=== PATIENT | female | born 1995 | race Caucasian/White ===

== ENCOUNTER 2020-11-26 23:38 | Emergency (ER) | payer SELFPAY ==
[~2020-11-26] VITALS: Ht 167.6 cm; Wt 63.5 kg
--- NOTE | 2020-11-27 | NUR ---
Patient walked into ER c/o fever and N/V with diarrhea that started this AM. Patient states she had an appendectomy 1 week ago. 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 A/O x4, no SOB or labored breathing. Denies CP/pressure.
--- NOTE | 2020-11-27 00:15 | NUR ---
Dr. Cox at bedside, MSE in progress.
[2020-11-27] MEDS ORDERED: LORA2TAB95 PO (00:31)
[2020-11-27] MEDS ORDERED: ONDA4TAB5 PO (00:31)
[2020-11-27] MEDS ORDERED: ALPR1TAB7 PO (00:31)
[2020-11-27] MEDS ORDERED: QUET200T PO (00:31)
[2020-11-27] MEDS ORDERED: OXYC-128 PO (00:31)
[2020-11-27] MEDS ORDERED: IV NORMAL SALINE 1000 ML BAG IV ONE (00:45)
[2020-11-27] MEDS ORDERED: ONDANSETRON 4 MG/2 ML VIAL IV ONE ×2 (00:45→02:45)
[2020-11-27] MEDS ORDERED: HYDROMORPHONE 1 MG/1 ML DISP.SYRIN IV ONE ×2 (00:45→02:00)
[2020-11-27] MEDS ORDERED: ONDANSETRON 4 MG/2 ML VIAL ONE ×2 (01:24→02:40)
[2020-11-27] MEDS ORDERED: HYDROMORPHONE 1 MG/1 ML DISP.SYRIN ONE ×2 (01:29→02:10)
[2020-11-27 01:49] LABS: CARBON DIOXIDE 28 mmol/L (21-32); CHLORIDE 103 mmol/L (98-107); CREATININE 0.6 mg/dL (0.6-1.3); GLUCOSE 95 mg/dL (74-106); POTASSIUM 3.6 mmol/L (3.5-5.1); UREA NITROGEN, BLOOD 2 mg/dL (7-18)
[2020-11-27 01:50] LABS: HEMATOCRIT 30.4 % (31.2-41.9); MEAN CORPUSCULAR HEMOGLOBIN 27.2 uug (24.7-32.8); PLATELET COUNT (AUTO) 185 K/uL (179-408)
[2020-11-27 01:55] LABS: ALANINE AMINOTRANSFERASE 118 U/L (14-59); ALKALINE PHOSPHATASE 271 U/L (50-136); ASPARTATE AMINOTRANSFERASE 84 U/L (15-37); BILIRUBIN,DIRECT 0.2 mg/dL (0.0-0.2); BILIRUBIN,TOTAL 0.8 mg/dL (0.2-1.0); LIPASE 30 U/L (73-393); TOTAL PROTEIN, SERUM 6.9 g/dL (6.4-8.2)
[2020-11-27 02:23] LABS: *BILIRUBIN,URIN NEGATIVE (NEGATIVE); *BLOOD, URINE 2+ (NEGATIVE); *CLARITY,URINE CLEAR (CLEAR); *COLOR,URINE YELLOW (YELLOW); *KETONES,URINE NEGATIVE (NEGATIVE); *UROBILINOGEN,URINE 0.2 E.U./dl (NORMAL); LEUKOCYTE ESTERASE ,URINE TRACE (NEGATIVE); NITRITE, URINE NEGATIVE (NEGATIVE); PH,URINE 6.5 (5.0-8.0); UGLUCOSE NEGATIVE (NEGATIVE)
--- NOTE | 2020-11-27 02:38 | NUR ---
PT TAKEN DOWN FOR CT.
[2020-11-27 02:48] LABS: BACTERIA,URINE NONE SEEN /HPF (NONE SEEN); RBC,URINE 0-3 /HPF (0-3); SQUAMOUS EPITHELIAL CELL,UR MODERATE /HPF (NONE SEEN); WBC,URINE 0-3 /HPF (0-3)
--- NOTE | 2020-11-27 02:48 | NUR ---
PT RETURNED FROM CT, STABLE CONDITION.
--- NOTE | 2020-11-27 04:19 | NUR ---
Patient is resting comfortably in bed with eyes closed.
[2020-11-27] MEDS ORDERED: HYDR-4209 PO (04:22)
[2020-11-27] MEDS ORDERED: ONDA8TAB13 PO (04:22)
--- NOTE | 2020-11-27 04:43 | NUR ---
Patient discharged to home in stable condition. A/O x4, no SOB or labored breathing, afebrile. Denies any yoo/discomfort at this time. Written and verbal after care instructions given. Patient verbalizes understanding of instructions. Stressed follow up or return to ER for worsening s/s. Steady gait. Picked up by family.
[2020-11-27 04:47] VITALS: BP 102/56
== END 2020-11-27 04:45 | disposition home or self-care (01) ==
LOC: ER 23:55
DX: G89.18 Other acute postprocedural pain (principal); R10.84 Generalized abdominal pain; E86.0 Dehydration; R11.2 Nausea with vomiting, unspecified; R50.9 Fever, unspecified; Z20.822 Contact with and (suspected) exposure to COVID-19; Z90.49 Acquired absence of other specified parts of digestive tract
CPT/HCPCS: 36415; 74176; 80048; 80076; 81001; 83690; 84702; 85025; 87426; 96361; 96374; 96375; 96376; 99284; J1170 ×2; J2405 ×2; A4663; J7030

== ENCOUNTER 2020-12-01 20:41 | Emergency (ER) | payer SELFPAY ==
[~2020-12-01] VITALS: Ht 167.6 cm; Wt 65.8 kg
[~2020-12-01 20:41] MED LIST: ALPR1TAB7 PO; HYDR-4209 PO; LORA2TAB95 PO; ONDA4TAB5 PO; ONDA8TAB13 PO; OXYC-128 PO; QUET200T PO
[2020-12-01] MEDS ORDERED: IV NORMAL SALINE 1000 ML BAG IV ONE (21:45)
[2020-12-01] MEDS ORDERED: ONDANSETRON 4 MG/2 ML VIAL IV ONE ×2 (21:45→23:00)
[2020-12-01] MEDS ORDERED: ONDANSETRON 4 MG/2 ML VIAL ONE ×2 (21:52→23:07)
[2020-12-01] MEDS ORDERED: HYDROMORPHONE 1 MG/1 ML DISP.SYRIN IV ONE (22:00)
[2020-12-01] MEDS ORDERED: SWABABLE VALVE TRANSFER SET EA MC ONE (22:12)
[2020-12-01] MEDS ORDERED: IOHEXOL 300MG/ML 100 ML INFUS..BTL ONE (22:12)
[2020-12-01] MEDS ORDERED: IV NORMAL SALINE 250 ML IV ONE (22:12)
--- NOTE | 2020-12-01 22:25 | NUR ---
Patient taken out for CT scan by sales support technician.
[2020-12-01 22:27] LABS: MEAN CORPUSCULAR HEMOGLOBIN 26.3 uug (24.7-32.8); MEAN CORPUSCULAR VOLUME 79.8 fL (75.5-95.3); PLATELET COUNT (AUTO) 297 K/uL (179-408)
[2020-12-01] MEDS ORDERED: HYDROMORPHONE 1 MG/1 ML DISP.SYRIN ONE (22:29)
[2020-12-01 22:38] LABS: BILIRUBIN,DIRECT 0.1 mg/dL (0.0-0.2); BILIRUBIN,TOTAL 0.4 mg/dL (0.2-1.0); CREATININE 0.7 mg/dL (0.6-1.3); POTASSIUM 3.6 mmol/L (3.5-5.1); TOTAL PROTEIN, SERUM 7.6 g/dL (6.4-8.2)
--- NOTE | 2020-12-02 00:30 | NUR ---
Patient is resting comfortably in bed with eyes closed, no acute distress noted.
--- NOTE | 2020-12-02 01:00 | NUR ---
Patient c/o of angiocath 22g L wrist IV site. Assessed the site for infiltration. No infiltration present, flushes well. Readjusted position of the angiocath, patient stated relief of discomfort.
--- NOTE | 2020-12-02 01:23 | NUR ---
highway maintenance technician in room with patient.
--- NOTE | 2020-12-02 01:25 | NUR ---
Patient requesting more pain medication before U/S procedure, MD Hernandez made aware.
[2020-12-02] MEDS ORDERED: FENTANYL CITRATE 100 MCG/2 ML AMPUL IV ONE (01:30)
[2020-12-02] MEDS ORDERED: FENTANYL CITRATE 100 MCG/2 ML AMPUL ONE (01:37)
--- NOTE | 2020-12-02 03:52 | NUR ---
IV removed. Catheter intact and site benign. Pressure and 4x4 gauze applied to site. No bleeding noted.
[2020-12-02 04:30] VITALS: BP 104/60
--- NOTE | 2020-12-02 04:30 | NUR ---
Patient discharged to home in stable condition. Written and verbal after care instructions given. Patient verbalizes understanding of instructions. Stressed follow up or return to ER for worsening s/s. Patient ambulates with steady gait with her walker, V/S stable, IV line removed, and left with all personal belongings.
== END 2020-12-02 04:30 | disposition home or self-care (01) ==
LOC: ER 20:42
DX: G89.18 Other acute postprocedural pain (principal); R10.31 Right lower quadrant pain; N20.0 Calculus of kidney; R11.2 Nausea with vomiting, unspecified; R19.7 Diarrhea, unspecified
CPT/HCPCS: 36415 ×2; 74176; 76700; 76856; 80048; 80076; 83605 ×2; 83690; 85025; 87040; 96361; 96374; 96375; 96376; 99284; J1170; J2405 ×2; J3010; A4663; J7030; J7050; Q9967

== ENCOUNTER 2020-12-08 01:55 | Inpatient (IN) | payer SELFPAY ==
[~2020-12-08] VITALS: Ht 167.6 cm; Wt 64.5 kg
--- NOTE | 2020-12-08 02:24 | NUR ---
MD Malloy in room to do MSE.
[2020-12-08] MEDS ORDERED: KETOROLAC TROMETHAMINE 15 MG INJ IVP ONE (02:30)
[2020-12-08] MEDS ORDERED: IV NORMAL SALINE 1000 ML BAG IV ONE ×3 (02:30→04:00)
[2020-12-08 02:41] LABS: *BILIRUBIN,URIN NEGATIVE (NEGATIVE); *BLOOD, URINE NEGATIVE (NEGATIVE); *CLARITY,URINE CLEAR (CLEAR); *COLOR,URINE YELLOW (YELLOW); *KETONES,URINE NEGATIVE (NEGATIVE); *UROBILINOGEN,URINE 0.2 E.U./dl (NORMAL); LEUKOCYTE ESTERASE ,URINE NEGATIVE (NEGATIVE); NITRITE, URINE NEGATIVE (NEGATIVE); PH,URINE 6.5 (5.0-8.0); UGLUCOSE NEGATIVE (NEGATIVE)
--- NOTE | 2020-12-08 02:49 | NUR ---
Patient refused toradol saying she think she got an allergic reaction to it before at one point with "rash at the infusion site."
--- NOTE | 2020-12-08 02:50 | NUR ---
Patient keeps disconnecting monitoring equipment. Patient educated to keep monitoring equipment on.
[2020-12-08 02:57] LABS: *AMPHETAMINE, URINE NEGATIVE (NEGATIVE); *CANNABINOID, URINE NEGATIVE (NEGATIVE); *COCCAINE, URINE NEGATIVE (NEGATIVE); *OPIATE, URINE NEGATIVE (NEGATIVE); *PHENCYCLIDINE SCREEN,URINE NEGATIVE (NEGATIVE)
[2020-12-08] MEDS ORDERED: ACETAMINOPHEN ES 500 MG TABLET PO ONE ×2 (03:15→03:30)
[2020-12-08] MEDS ORDERED: ACETAMINOPHEN ES 500 MG TABLET ONE (03:27)
[2020-12-08 03:35] LABS: HEMATOCRIT 36.6 % (31.2-41.9); MEAN CORPUSCULAR HEMOGLOBIN 25.9 uug (24.7-32.8); MEAN CORPUSCULAR VOLUME 78.6 fL (75.5-95.3); PLATELET COUNT (AUTO) 307 K/uL (179-408)
[2020-12-08 03:38] LABS: CARBON DIOXIDE 20 mmol/L (21-32); CHLORIDE 105 mmol/L (98-107); CREATININE 0.7 mg/dL (0.6-1.3); GLUCOSE 90 mg/dL (74-106); POTASSIUM 3.1 mmol/L (3.5-5.1); UREA NITROGEN, BLOOD 4 mg/dL (7-18)
[2020-12-08 03:43] LABS: ALANINE AMINOTRANSFERASE 16 U/L (14-59); ALKALINE PHOSPHATASE 168 U/L (50-136); ASPARTATE AMINOTRANSFERASE 16 U/L (15-37); BILIRUBIN,DIRECT 0.2 mg/dL (0.0-0.2); LIPASE 43 U/L (73-393); TOTAL PROTEIN, SERUM 8.4 g/dL (6.4-8.2)
[2020-12-08 03:57] LABS: MAGNESIUM 2.5 mg/dL (1.8-2.4); PHOSPHOROUS 3.5 mg/dL (2.5-4.9)
[2020-12-08] MEDS ORDERED: POTASSIUM CHLORIDE 20 MEQ TAB.PRT.SR PO ONE (04:00)
[2020-12-08 04:08] LABS: THYROID STIMULATING HORMONE 1.404 mIU/mL (0.358-3.740)
[2020-12-08] MEDS ORDERED: POTASSIUM CHLORIDE 20 MEQ TAB.PRT.SR ONE (04:16)
[2020-12-08 04:24] LABS: ABG BASE EXCESS -6.4 mmol/L; ABG HCO3 17.2 mmol/L; ABG PCO2 28.4 mmHg (35.0-45.0); ABG PH 7.401 (7.350-7.450); ABG PO2 121.1 mmHg (75.0-100.0); ABG SITE RIGHT RADIAL; ABG TOTAL HEMOGLOBIN 10.8 G/dL (12.0-16.0); COHb 0.3 % (0.5-1.5); MetHb 0.1 % (0.0-1.5)
--- NOTE | 2020-12-08 04:38 | NUR ---
Patient is resting comfortably in bed with eyes closed, no acute distress noted.
--- NOTE | 2020-12-08 05:34 | NUR ---
Patient is resting comfortably in bed with eyes closed, no acute distress noted.
[2020-12-08] MEDS ORDERED: MORPHINE SULFATE 4 MG/1 ML DISP.SYRIN IV ONE (07:00)
[2020-12-08] MEDS ORDERED: ONDANSETRON 4 MG/2 ML VIAL IV ONE (07:00)
--- NOTE | 2020-12-08 07:30 | NUR ---
Received patient in shift report, no signs of acute distress, Informed by [facility] charge nurse that no bed available at this time
--- NOTE | 2020-12-08 09:42 | NUR ---
ELEANOR Varela paged for orders regarding pain medication request
[2020-12-08] MEDS ORDERED: ACETAMINOPHEN 325 MG TABLET PO PRN (10:30)
[2020-12-08] MEDS ORDERED: MAGNESIUM HYDROXIDE 30 ML LIQUID UDC PO PRN (10:30)
[2020-12-08] MEDS: MORPHINE SULFATE 4 MG/1 ML DISP.SYRIN IV PRN ×2 (10:42→15:11)
[2020-12-08] MEDS: ONDANSETRON 4 MG/2 ML VIAL IV PRN (10:42)
[2020-12-08] MEDS ORDERED: MORPHINE SULFATE 4 MG/1 ML DISP.SYRIN ONE ×3 (10:44→19:00)
[2020-12-08] MEDS: CEFTRIAXONE 1 G in IV DEXTROSE 5% 50 ML IV SCH (12:45)
[2020-12-08] MEDS ORDERED: IV NORMAL SALINE 250 ML IV ONE (12:49)
[2020-12-08] MEDS ORDERED: SWABABLE VALVE TRANSFER SET EA MC ONE (12:49)
[2020-12-08] MEDS ORDERED: IOHEXOL 300MG/ML 100 ML INFUS..BTL ONE (12:49)
--- NOTE | 2020-12-08 13:00 | NUR ---
patient noted using restroom at this time, no signs of acute distress noted, vitals WNLs
[2020-12-08] MEDS ORDERED: HYDROMORPHONE 1 MG/1 ML DISP.SYRIN IV ONE (13:30)
[2020-12-08] MEDS ORDERED: CEFTRIAXONE /D5W 50ML IVPB **ER PYXIS IV ONE (13:57)
[2020-12-08] MEDS ORDERED: HYDROMORPHONE 1 MG/1 ML DISP.SYRIN ONE ×2 (13:57→21:01)
[2020-12-08] MEDS ORDERED: METRONIDAZOLE 500 MG/NS 100ML 100 ML IV ONE ×2 (13:57→23:14)
[2020-12-08] MEDS ORDERED: LORAZEPAM 0.5 MG TABLET PO PRN (14:15)
[2020-12-08] MEDS: METRONIDAZOLE 500 MG/NS 100ML 500 MG in PREMIXED 1 EACH IV SCH ×2 (14:16→23:15)
--- NOTE | 2020-12-08 15:24 | NUR ---
No signs of acute distress noted, awaiting medsurg bed availability, pain management needs being adressed
--- NOTE | 2020-12-08 16:05 | NUR ---
manager transportation planning Cammie called regarding transfer to [facility], awaiting update
[2020-12-08] MEDS ORDERED: ONDANSETRON 4 MG/2 ML VIAL ONE (19:00)
--- NOTE | 2020-12-08 19:00 | NUR ---
Morphine 4 mg IV given for abdominal pain at 1900
[2020-12-08] MEDS ORDERED: IV LACTATED RINGERS SOLUTION 1,000 ML IV PRN (19:45)
[2020-12-08] MEDS: QUETIAPINE FUMARATE 200 MG TABLET PO SCH (21:01)
[2020-12-08] MEDS: HYDROMORPHONE 1 MG/1 ML DISP.SYRIN IV PRN (21:02)
[2020-12-08] MEDS ORDERED: QUETIAPINE FUMARATE 200 MG TABLET ONE (21:03)
--- NOTE | 2020-12-08 21:40 | NUR ---
attempted to call case resolution specialist osbaldo for updates. no response at this time
--- NOTE | 2020-12-08 22:04 | NUR ---
Spoke with Aaron Centeno supervisor and was notified that there is no upper caser at this time
--- NOTE | 2020-12-08 22:57 | NUR ---
Avery WEBSTER notified that no updates for transfer at this time. given permission to admit at [facility] at Med / Surg Unit
--- NOTE | 2020-12-08 23:49 | NUR ---
fLAGYL 500MG DONE INFUSING AT 2345. NO ASE NOTED
[2020-12-09] MEDS: IV NS 1000 ML 1,000 ML IV PRN (00:20)
[2020-12-09 00:58] VITALS: BP 104/47
[2020-12-09] MEDS: HYDROMORPHONE 1 MG/1 ML DISP.SYRIN IV PRN ×6 (01:17→22:19)
[2020-12-09] MEDS ORDERED: METRONIDAZOLE 500 MG/NS 100ML 100 ML IV ONE (02:40)
--- NOTE | 2020-12-09 03:29 | NUR ---
Pt arrived in the unit at 2354 via gurney from ER. AAO x4. No acute distress noted. C/o moderate pain on left lower abdomen where she had appendectomy via laparoscopy 1 1/2 weeks ago. IV Dilaudid PRN given as ordered. Surgical sites are clean and dry, no s/s of infection, no drainage noted. Picture taken and placed in chart. Pertinent assessment done. IV in right AC running IVF @ 100cc/ hr. Oriented pt to room. Pt is ambulatory. Safety measures maintained. Call light and personal items within reach. Will continue to monitor. Addendum: 12/09/20 at 0538 by Erick Milan RN right lower abdomen pain , not left lower abdomen
[2020-12-09] MEDS: METRONIDAZOLE 500 MG/NS 100ML 500 MG in PREMIXED 1 EACH IV SCH ×2 (05:29→13:54)
[2020-12-09] MEDS: PANTOPRAZOLE SODIUM 40 MG TABLET.DR PO SCH (06:52)
[2020-12-09 11:48] VITALS: BP 110/67
[2020-12-09] MEDS: CEFTRIAXONE 1 G in IV DEXTROSE 5% 50 ML IV SCH (13:30)
[2020-12-09] MEDS: ONDANSETRON 4 MG/2 ML VIAL IV PRN ×3 (13:47→22:16)
[2020-12-09] MEDS ORDERED: METOCLOPRAMIDE HCL 10 MG/2 ML VIAL IV PRN ×2 (14:00)
[2020-12-09 14:50] LABS: HEMATOCRIT 34.1 % (31.2-41.9); MEAN CORPUSCULAR HEMOGLOBIN 26.5 uug (24.7-32.8); MEAN CORPUSCULAR VOLUME 79.1 fL (75.5-95.3); PLATELET COUNT (AUTO) 295 K/uL (179-408)
[2020-12-09 14:59] LABS: CREATININE 0.6 mg/dL (0.6-1.3); MAGNESIUM 2.4 mg/dL (1.8-2.4); POTASSIUM 3.6 mmol/L (3.5-5.1)
[2020-12-09 15:24] VITALS: BP 109/72
[2020-12-09 20:30] VITALS: BP 127/80
[2020-12-09] MEDS: METRONIDAZOLE 500 MG TABLET PO SCH (21:08)
[2020-12-09] MEDS: QUETIAPINE FUMARATE 200 MG TABLET PO SCH (21:08)
[2020-12-10] MEDS: HYDROMORPHONE 1 MG/1 ML DISP.SYRIN IV PRN ×3 (02:30→11:28)
[2020-12-10 04:25] VITALS: BP 113/59
[2020-12-10] MEDS: METRONIDAZOLE 500 MG TABLET PO SCH (07:06)
[2020-12-10] MEDS: PANTOPRAZOLE SODIUM 40 MG TABLET.DR PO SCH (07:06)
--- NOTE | 2020-12-10 07:14 | NUR ---
Shift note: RECEIVED PT START OF SHIFT INTRODUCED MYSELF TO PT INFORMED PT THAT WILL BE HER NURSE THE SHIFT PT HAS IVF OF NS INFUSING AT 100ML/HR PT IS ALERT AND ORIENTED X4 PT WAS GIVEN MEDICATION 3 TIMES THROUGHOUT SHIFT FOR ABD PAIN. PT WAS GIVEN REG MEDICATION TOLERATED WELL AND NO SIGNS OF ADVERSE REACTION NOTED. WILL CONTINUE TO MONITOR FOR SAFETY ORDERED. WILL ENDORSE AM WHAT HAPPEN THROUGHOUT THE SHIFT.
--- NOTE | 2020-12-10 07:40 | NUR ---
Received in bed awake and alert oriented. Denies pain, nausea or vomiting at this time. No respiratory distress noted. IV hydration ongoing and tolerated. She is comfortable. Call light within easy reach. Will continue to monitor.
[2020-12-10] MEDS: ONDANSETRON 4 MG/2 ML VIAL IV PRN (09:01)
--- NOTE | 2020-12-10 10:30 | NUR ---
Patient stated she vomited but did not witness it nor vomitus found. She stated she flushed the toilet in hurry. Patient also said she had diarrhea but unable to tell if stool is loose or not. Still c/o abdominal pain.
[2020-12-10] MEDS: IV NS 1000 ML 1,000 ML IV PRN (10:35)
[2020-12-10 11:15] VITALS: BP 124/65
[2020-12-10] MEDS ORDERED: LORAZEPAM 0.5 MG TABLET PO PRN (11:45)
[2020-12-10] MEDS ORDERED: LORAZEPAM 1 MG TABLET PO PRN (11:45)
[2020-12-10] MEDS ORDERED: OXYCODONE/APAP 5-325 MG TABLET PO PRN (11:45)
--- NOTE | 2020-12-10 12:00 | NUR ---
Received call from pharmacy re patient's percocet and allergy to morphine. Per patient she's taken percocet before and did not experience any reactions. She would like to continue medication. Pharmacy aware.
[2020-12-10] MEDS: LORAZEPAM 2 MG/1 ML VIAL IV PRN ×2 (12:03→18:05)
[2020-12-10] MEDS: CEFTRIAXONE 1 G in IV DEXTROSE 5% 50 ML IV SCH (12:03)
[2020-12-10 15:17] VITALS: BP_SYST 110; BP_SYST 111; BP_DIAS 68; BP_DIAS 76
--- NOTE | 2020-12-10 19:01 | NUR ---
Patient alert and oriented x4. Denies sob or pain at this time. IV intact. No acute distress. Needs attended. Kept comfortable. Call light within reach.
--- NOTE | 2020-12-10 20:47 | NUR ---
RECEIVED REPORT FROM AM NURSE STATES'PT NOT RECEIVING DILAUDID 0.25MG FOR PAIN PT IS RECEIVING PERCOCET FOR PAIN' PT MADE AWARE CAN'T RECEIVED DILAUDID DR José/Rickey NOW HAVE PO INSTEAD OF IV AFTERWARDS PT DECIDED TO SIGN OUT AMA STATES' THE PILLS AREN'T WORKING I AM STILL IN A LOT OF PAIN AND I CAN GO BACK TO THE OTHER HOSPITAL. PT WAS TAKEN DOWN VIA WHEELCHAIR TAKEN DOWN TO AWAITING VEHICLE NO SIGNS OF DISTRESS NOTED.
== END 2020-12-10 21:00 | disposition left against medical advice (07) | DRG 392 ==
LOC: ER 02:07 → TRANSITION 10:08 → TELE3 23:22 → MEDSURG3 23:52
PROVIDERS: ADMIT Nurse Practitioner Family; ATTEND Nurse Practitioner Family
DX: R10.9 Unspecified abdominal pain (principal); E87.2 Acidosis; E87.6 Hypokalemia; F10.129 Alcohol abuse with intoxication, unspecified; Y90.7 Blood alcohol level of 200-239 mg/100 ml; Z80.3 Family history of malignant neoplasm of breast; Z85.41 Personal history of malignant neoplasm of cervix uteri; Z82.49 Family history of ischemic heart disease and other diseases of the circulatory system; Z88.5 Allergy status to narcotic agent; Z92.21 Personal history of antineoplastic chemotherapy; Z88.8 Allergy status to other drugs, medicaments and biological substances; Z90.49 Acquired absence of other specified parts of digestive tract; Z20.822 Contact with and (suspected) exposure to COVID-19
CPT/HCPCS: 36415; 36600; 70030-TC; 83605; 83690; 83735; 84100; 84443; 85025; 87040; 93005; A4663; A9150; G0378; G0480; J0696; J1170; J2060; J2270; J2405; J3490; J7030; J7050; J7060; Q9967